=== PATIENT | male | born 2000 | race Hispanic/Latino ===

== ENCOUNTER 2023-07-23 19:17 | Emergency (ER) | payer OTHER ==
[~2023-07-23] VITALS: Ht 167.6 cm; Wt 85.4 kg
[2023-07-23] MEDS ORDERED: BENZ200C70 PO (21:53)
[2023-07-23] MEDS: BENZONATATE 100MG CAPSULE PO ONE (21:56)
[2023-07-23 22:04] VITALS: BP 136/89; TEMP 97.8; O2SAT 99
== END 2023-07-23 22:07 | disposition home or self-care (01) ==
LOC: M ED 19:17
DX: J40 Bronchitis, not specified as acute or chronic (principal); F17.290 Nicotine dependence, other tobacco product, uncomplicated; Z79.899 Other long term (current) drug therapy

== ENCOUNTER 2023-08-01 00:15 | Emergency (ER) | payer OTHER ==
[~2023-08-01] VITALS: Ht 167.6 cm; Wt 85.9 kg
[~2023-08-01 00:15] MED LIST: BENZ200C70 PO
[2023-08-01 03:51] LABS: BASO # 0.1 10^3/uL (0.0-0.2); BASO % 0.9 % (0.0-1.0); EOS # 0.6 10^3/uL (0.0-0.5); EOS % 7.2 % (0.0-3.0); HEMOGLOBIN 14.9 g/dl (13.5-17.5); LYMPH # 3.6 10^3/uL (1.5-5.0); MEAN CORPUSCULAR HGB CONC 34.7 g/dl (32.0-36.5); MEAN CORPUSCULAR VOLUME 89.6 fl (80.0-96.0); MONO # 0.6 10^3/uL (0.0-0.8); MONO % 6.6 % (2.0-8.0); NEUTROPHILS # 3.9 10^3/uL (1.5-8.5); NEUTROPHILS % 44.2 % (36.0-66.0); PLATELET COUNT, AUTOMATED 211 10^3/uL (150-450); WHITE BLOOD COUNT 8.8 10^3/uL (4.0-10.0)
[2023-08-01 04:15] LABS: BLOOD UREA NITROGEN 17 MG/DL (9-23); CALCIUM LEVEL 9.3 MG/DL (8.5-10.1); CARBON DIOXIDE LEVEL 27 MMOL/L (20-31); CHLORIDE LEVEL 106 MMOL/L (98-107); CREATININE FOR GFR 1.01 MG/DL (0.70-1.30); GLUCOSE, FASTING 91 MG/DL (60-100); SODIUM LEVEL 140 MMOL/L (136-145)
[2023-08-01 05:30] VITALS: BP 108/57; TEMP 98.4; O2SAT 97
== END 2023-08-01 05:45 | disposition home or self-care (01) ==
LOC: M ED 00:15
DX: R05.9 Cough, unspecified (principal); R55 Syncope and collapse; F17.290 Nicotine dependence, other tobacco product, uncomplicated

== ENCOUNTER 2023-09-25 04:22 | Emergency (ER) | payer OTHER ==
[~2023-09-25] VITALS: Ht 167.6 cm; Wt 91.0 kg
[2023-09-25 04:22] VITALS: BP 133/75; TEMP 97.6; O2SAT 98
== END 2023-09-25 04:33 | disposition left against medical advice (07) ==
LOC: M ED 04:22
DX: Z53.21 Procedure and treatment not carried out due to patient leaving prior to being seen by health care provider (principal)

== ENCOUNTER 2023-11-19 20:59 | Emergency (ER) | payer OTHER ==
[~2023-11-19] VITALS: Ht 167.6 cm; Wt 92.4 kg
[2023-11-19 21:00] VITALS: BP 145/88; TEMP 98; O2SAT 97
== END 2023-11-19 21:37 | disposition left against medical advice (07) ==
LOC: M ED 20:59
DX: Z53.21 Procedure and treatment not carried out due to patient leaving prior to being seen by health care provider (principal)

== ENCOUNTER 2025-01-07 10:45 | Emergency (ER) | payer OTHER ==
[~2025-01-07] VITALS: Ht 167.6 cm; Wt 93.8 kg
[2025-01-07] MEDS: IBUPROFEN 600 MG TAB PO ONE (12:56)
[2025-01-07 13:03] VITALS: BP 120/78; TEMP 97; O2SAT 98
== END 2025-01-07 14:00 | disposition home or self-care (01) ==
LOC: M ED 10:45
DX: M54.50 Low back pain, unspecified (principal); F17.210 Nicotine dependence, cigarettes, uncomplicated